=== PATIENT | male | born 1965 | race Caucasian/White ===

== ENCOUNTER 2017-01-11 04:36 | Emergency (ER) | payer OTHER ==
[~2017-01-11] VITALS: Ht 165.1 cm; Wt 108.9 kg
[~2017-01-11 04:36] MED LIST: CORTISPORIN (GE10 M1 OT; HYDROCHLOROTHIA25 M1 PO; SIMVASTATIN40 MG PO
[2017-01-11] MEDS ORDERED: FUROSEMIDE 40MG40 M1 PO (04:51)
[2017-01-11] MEDS ORDERED: VERAPAMIL SR 1120 MG PO (04:52)
--- OUTSIDE RECORDS SUMMARY | 2017-01-11 04:58 | External Medical Summary Rpt | CCD ---
Author Author , FEMI PATEL Address Unknown Phone [email or web address] Purpose Continuity of Care Document - through 2016
--- OUTSIDE RECORDS SUMMARY | 2017-01-11 04:58 | External Medical Summary Rpt | CCD ---
Author Author [employer] Organization [employer] Address Unknown Phone Unavailable Purpose Continuity of Care Document - through 2016
--- OUTSIDE RECORDS SUMMARY | 2017-01-11 04:58 | External Medical Summary Rpt | CCD ---
Author Author , FEMI PATEL Address Unknown Phone .[employer] Purpose Continuity of Care Document - through 2016
--- OUTSIDE RECORDS SUMMARY | 2017-01-11 04:59 | External Medical Summary Rpt ---
Author Author [employer], [employer] Organization [employer] Address Unknown Phone Unavailable
--- OUTSIDE RECORDS SUMMARY | 2017-01-11 04:59 | External Medical Summary Rpt | CCD ---
Demographics Preferred Language Setswana Marital Status Unknown Advent Affiliation Unknown Race Unknown Ethnic Group Unknown Author Author , FEMI PATEL Address Unknown Phone Immunization No patient found.
--- OUTSIDE RECORDS SUMMARY | 2017-01-11 04:59 | External Medical Summary Rpt | CCD ---
Demographics Preferred Language Chinese Marital Status Unknown Synagogue Affiliation Unknown Race Unknown Ethnic Group Unknown Author Author , FEMI PATEL Address Unknown Phone Immunization No patient found.
[2017-01-11 05:04] LABS: URINE BILIRUBIN - DIPSTICK NEGATIVE (NEG); URINE BLOOD NEGATIVE (NEG)
[2017-01-11 05:16] LABS: HEMOGLOBIN 14.8 g/dL (14.1-18.0); LYMPH # 3.2 K/mm3 (0.7-4.5); LYMPH % 39.3 % (10-50)
--- NOTE | 2017-01-11 05:45 | Emergency Room Report ---
History of Present Illness Time Seen by 0430 Presenting Problem in Triage Pt arrived:Walked Presenting Problem:PAIN IN RIGHT LOWER BACK, FLANK AREA INTO RIGHT GROIN AND TESTICLE. 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 N Clinical Suspician of Infection? N Mental Status: 1 - Regular (Normal Baseline) Sepsis Risk:Low Sepsis Risk Have you (or family members/close friends) recently traveled outside the [place]? N If Yes, where/when: Have you had exposure to infectious disease within the past month? N TB? Other? Specify: Source patient, RN notes reviewed, family, old records Exam Limitations no limitations Comment acute onset of rt flank pain with rad to groin with no fever or rash and no trauma Cardiac Chest Pain Chest pain indicative of cardiac No Timing/Duration this evening Severity moderate ALLERGIES Coded Allergies: iodine (01/11/17) Home Medications Reported Medications Simvastatin (Simvastatin 40MG Tab) 40 MG PO DAILY #90 Furosemide 40 MG PO DAILY VERAPAMIL HCL (Verapamil ER) 120 MG PO DAILY History Medical History General Angina: No HI: No Hypertension? No Hyperlipidemia? No CHF? No COPD? No Asthma? No Hernia? No CVA? No Seizures? No Diabetes? No UTI? No Stones? Yes GB Disease: Yes Hepatitis? No Cataracts? No Glaucoma? No MRSA? No TB? No Cancer? No Immunization Hx DT/Tetanus 5-10 YRS Surgical Hx Previous Surgery?Y VASECTOMY ORTHEPEDIC-FINGER CHOLECYSTECTOMY LT THR Family History Family Hx Diabetes Yes CAD Yes Hypertension Yes Hyperlipidemia Yes Cancer No Social History Smoking Hx Smoker: Never Smoker Tobacco: No Type Cigarettes Alcohol Alcohol: No Drugs none Review of Systems All Other Systems Reviewed and Negative Constitutional denies fever Eyes denies drainage ENT denies: ear discharge, epistaxis, throat pain. Respiratory denies cough, denies shortness of breath, denies wheezing Cardiovascular denies chest pain, denies syncope Gastrointestinal see HPI, abdominal pain, nausea Genitourinary denies: dysuria, scrotal/testicular pain. Musculoskeletal see HPI, denies back pain, denies joint pain, denies joint swelling, denies neck pain, other Skin denies rash Psychiatric/Neurological denies headache, denies seizure Physical Exam Vital Signs Vital Signs Date Time Temp Pulse Resp B/P Pulse O2 O2 Flow FiO2 Ox Delivery Rate 01/11 0638 72 20 125/72 92 01/11 0625 20 01/11 0510 18 01/11 0439 97.8 81 20 139/85 95 - WBC >12,000 or <4,000 or 10% bands? 2 or more SIRS Criteria Met? B/P:139/85 MAP:103 Creatinine >2.0? UA output<0.5ml/kg/hr for 2 hrs? Platelet count >100,000? Lactate >2.0mmol/1? INR >1.2 or PTT > than 60 sec? Evidence of Organ Dysfunction? Provider documented clinical suspician of infection? N Sepsis Criteria Count: 1 Sepsis Risk: Low Sepsis Risk General Appearance no apparent distress Eye Exam - bilateral eye PERRL, bilateral eye EOMI Ear, Nose, Throat normal ENT inspection Neck supple Respiratory Status No: respiratory distress. Lung Sounds bilateral: lungs clear. 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 No Results/Orders Laboratory Tests 01/11/17 0505: Sodium 139, Potassium 4.1, Chloride 104, Carbon Dioxide 27, BUN 16, Creatinine 0.8, Estimated Creat Clear 170, Estimated GFR (MDRD) 102, Glucose 121 H, Calcium 8.7, Total Bilirubin 0.7, AST 25, ALT 29, Alkaline Phosphatase 112, Total Protein 7.9, Albumin 3.8, Globulin 4.1 H, Albumin/Globulin Ratio 0.9 L, WBC 8.1, RBC 4.63, Hgb 14.8, Hct 43.4, MCV 93.8, RDW 12.9, Plt Count 229, MPV 7.6, Gran % 49.2, Gran # 4.0, Lymphocytes % 39.3, Monocytes % 8.8, Eosinophils % 2.2, Basophils % 0.5, Lymphocytes # 3.2, Monocytes # 0.7, Eosinophils # 0.2, Basophils # 0.0, PUBS MCHC 34.0, MCH 31.9 H 01/11/17 0500: Urine Color YELLOW, Urine Appearance CLEAR, Urine pH 6.0, Ur Specific [place] >= 1.030, Urine Protein NEGATIVE, Urine Ketones NEGATIVE, Urine Blood NEGATIVE, Urine Nitrate NEGATIVE, Urine Bilirubin NEGATIVE, Urine Urobilinogen 0.2, Ur Leukocyte Esterase NEGATIVE, Urine WBC OCC, Amorphous Sediment TRACE, Urine Mucus TRACE, Urine Glucose NEGATIVE Current Medication Orders Sig/Rosa Start time Last Medication Dose Route Stop Time Status Admin Morphine Sulfate 4 MG ONCE ONE 01/11 630 DC 01/11 IV 01/11 631 0625 Promethazine HCl 12.5 MG ONCE ONE 01/11 630 DC 01/11 IV 01/11 631 0625 Sodium Chloride 25 ML ONCE ONE 01/11 630 DC 01/11 IV 01/11 0644 0626 Promethazine HCl 0 .STK-MED ONE 01/12 624 DC .ROUTE Sodium Chloride 25 ML .STK-MED ONE 01/12 624 DC IV Morphine Sulfate 0 .STK-MED ONE 01/11 0623 DC .ROUTE Ketorolac 30 MG ONCE ONE 01/11 0515 DC 01/11 Tromethamine IV 01/11 0516 0510 Ketorolac 0 .STK-MED ONE 01/11 0507 DC Tromethamine .ROUTE Sodium Chloride 10 ML PRN PRN 01/11 0500 AC IV 01/12 0455 Orders Procedure Date/time Status DIET-NOTHING BY MOUTH 01/[address] ABD & PELVIS W/O CONTRAST 01/[address] ABD/PELVIS REQ 01/12 456 Active IV SALINE LOCK 01/12 456 Active URINALYSIS/COMPLETE 01/12 456 Complete CBC WITH AUTO DIFF 01/12 456 Complete CHEM 12 PROFILE 01/12 456 Complete XRAY/CT/US XRAY/CT/US CT abdomen, pelvis CT interpretation by discussed w/radiologist Time results known: 0637 CT Results abnormal (see report) Departure Departure Time of Disposition 0650 Disposition DC Home or Self Care(routine) Clinical Impression Primary Impression: Flank pain, acute Secondary Impressions: Mesenteric adenitis Condition STABLE Referrals Neil Finney MD (Family) Patient Instructions DI for Mesenteric Adenitis-Adult Additional Instructions use meds and see pcp for follow up Discharge Counseling Counseled pt/family regarding diagnosis, test results, medications/RX, follow up needs Prescriptions Current Visit Scripts HYDROCODONE/ACETAMINOPHEN ([place] 5-325 Tablet) 1 TAB PO Q6HP PRN pain #10 TAB ED Critical Care Critical Care No at 0609
[2017-01-11] MEDS ORDERED: NORCO 325 MG-51 TAB PO (06:53)
[2017-01-11 07:02] VITALS: BP 125/72
--- NOTE | 2017-01-11 09:29 | RADIOLOGY REPORT PS360 ---
CT ABD PELVIS W/O CONTRAST HISTORY: ABD PAINright flank pain and groin pain Patient Age: 51 years: Male Ordering Physician: Malini Vyas MD TECHNIQUE: Helical CT scanning through abdomen and pelvis with no oral nor IV contrast utilized. Sagittal and coronal reconstructions on CT workstation COMPARISON : No previous studies available for comparison . FINDINGS Lower thorax. Mild bibasilar atelectasis dependent lower lobes bilateral. Heart, borderline cardiomegaly Abdomen pelvis: Lack of oral and IV contrast decreases sensitivity Liver. Subtle slightly inhomogeneous fatty changes in the liver most likely account for its appearance. If abnormal LFTs follow-up postcontrast may be in order. Gallbladder is been removed. Pancreas unremarkable on this noncontrast study. No biliary ductal dilatation. Adrenals unremarkable. Spleen normal size unremarkable. Right kidney. No hydronephrosis Small 2.6 mm nonobstructive calculus at the midportion right kidney. Left kidney. No hydronephrosis. Suggestion of 2 tiny developing calculi measuring 1 mm at upper pole left kidney axial image 40. Barely appreciable 18 mm x 20 mm height a cyst is seen at upper pole left kidney. There may be septation and minimal debris here a slightly complex but most likely benign cyst, but to be cautious may benefit from CT follow-up 6 months to confirm stable benign cystic nature. The ureters unremarkable. Normal caliber bilaterally with no calculi evident. Urinary bladder. Unremarkable. Streak artifact from the left hip prosthesis left ABEL, limit detail at urinary bladder but is unremarkable. Small prostate and seminal vesicles... Incidental note is made of severe arthritic changes at the right hip with [id number] appearance appear right hip joint space, sclerosis and prominent subchondral cystic features most evident at superior right femoral head, about arthritic joint. Just anterior to the metallic left ABEL there is slight additional fullness of the left iliopsoas muscle measuring 2 cm diameter x 3.5 cm in length. Warrants clinical correlation. Most suspect this reflect some fluid in the bursa anterior to this.- Is there focal tenderness here? GI tract Colonic diverticulosis which is most evident and numerous at sigmoid colon but no good evidence of diverticulitis. Diverticula also seen throughout the left colon through at least the splenic flexure. Livp-we-qaxxaway stool throughout colon. Terminal ileum appears normal.. Appendix normal & unremarkable . No free fluid no free air in the abdomen or pelvis. Very slight hazy appearance in the superior mesentery, most evident slightly to the left of midline is noted. Likely mesentery leading to proximal small bowel. No wall thickening at adjacent associated small bowel appreciable No significant enlarged mesenteric nodes. Only question some tiny scattered nodes mesentery. This is a nonspecific most likely normal variant feature although could reflect a mild mesenteric adenitis. Early manifestation of lymphoma, very unlikely however as suggested by [facility] report this & other features may be with a follow-up CT with contrast in 6 months.. Small bowel unremarkable . Degenerative disc space narrowing L5/S1 along with facet arthropathy at this level. IMPRESSION 1. No urinary tract obstruction. No hydronephrosis..No ureteral calculi or obstruction 2. Tiny punctate nonobstructive bilateral renal calculi noted. At Left kidney upper pole, note 2 tiny barely appreciable nonobstructive calculi. 3. Left renal cyst upper pole left kidney. ... ~2 cm most likely benign renal cyst with with possible minimal septation. Note comments in text 4. Colonic diverticulosis most evident sigmoid colon with scattered diverticuli throughout the left colon. No acute diverticulitis evident 5. Subtle hazy appearance at the mesentery most notable leading to the proximal small bowel left upper quadrant. Nonspecific at most likely normal variant feature although could reflect mild mesenteric adenitis. Very unlikely to reflect more significant process. Consider follow-up CT with contrast in 6 months as suggested by [facility] preliminary report, to further evaluate above very minor features, particularly if abdominal pain or symptoms persist
== END 2017-01-11 07:03 | disposition home or self-care (01) ==
LOC: ER 04:36
PROVIDERS: Emergency Medicine
DX: R10.9 Unspecified abdominal pain (principal); I88.0 Nonspecific mesenteric lymphadenitis